=== PATIENT | female | born 1995 | race Caucasian/White ===

== ENCOUNTER 2020-06-09 08:04 | Emergency (ER) | payer MEDICAID, SELFPAY ==
[~2020-06-09] VITALS: Ht 160 cm; Wt 88.5 kg
[2020-06-09 08:04] VITALS: BP 114/72
--- NOTE | 2020-06-09 08:04 | NUR ---
PT BIBA AND PLACED IN COVID TENT TO WAIT FOR MSE.
--- NOTE | 2020-06-09 08:22 | NUR ---
BIBA FROM HOME C/O SOB, BODY ACHES, LOSS OF SMELL X1 DAY HX DENIES RX DENIES
[2020-06-09] MEDS ORDERED: KETOROLAC 60 MG/2 ML VIAL IM ONE (08:50)
[2020-06-09] MEDS ORDERED: ONDANSETRON 4 MG ODT PO ONE (08:50)
--- NOTE | 2020-06-09 09:00 | NUR ---
COVID SWAB COLLECTED.
[2020-06-09 09:10] VITALS: BP 114/72
--- NOTE | 2020-06-09 09:10 | NUR ---
Patient discharged with v/s stable. Written and verbal after care instructions given and explained. Patient alert, oriented and verbalized understanding of instructions. Ambulatory with steady gait. All questions addressed prior to discharge. ID band removed. Patient advised to follow up with PMD. Rx of ZOFRAN & MOTRIN given. Patient educated on indication of medication including possible reaction and side effects. Opportunity to ask questions provided and answered.
== END 2020-06-09 09:10 | disposition home or self-care (01) ==
LOC: MED 08:04
DX: M79.10 Myalgia, unspecified site (principal); R05 Cough; R51.9 Headache, unspecified; Z20.828 Contact with and (suspected) exposure to other viral communicable diseases
CPT/HCPCS: 96372; 99283; J1885; Q0162; U0003

== ENCOUNTER 2022-05-03 20:25 | Emergency (ER) | payer MEDICAID ==
[~2022-05-03] VITALS: Ht 157.5 cm; Wt 104.3 kg
[2022-05-03 20:56] VITALS: BP 119/71
--- NOTE | 2022-05-03 21:02 | NUR ---
TO LOBBY FOLLOWING TRIAGE
--- NOTE | 2022-05-03 21:26 | NUR ---
pt to bed 11
--- NOTE | 2022-05-03 21:31 | NUR ---
Pt coming from home ambulatory with steady gait. Pt c/o left shoulder pain that radiates to her wrist. Pain with activity. No trauma. Pt states she woke up and thats when her shoulder started to hurt. Skin intact. No deformity noted and no swelling. Pt A&Ox4. VSS. NKA. No known medical conditions. Bed in lowest position.
[2022-05-03] MEDS ORDERED: KETOROLAC 60 MG/2 ML VIAL IM ONE (22:55)
--- NOTE | 2022-05-03 23:00 | NUR ---
Dr. Lewis at bedside examining pt.
--- NOTE | 2022-05-03 23:03 | NUR ---
X-Ray at bedside.
--- NOTE | 2022-05-04 01:55 | NUR ---
Dr. Lewis at bedside.
[2022-05-04] MEDS ORDERED: NAPR-54 PO (01:57)
[2022-05-04 02:00] VITALS: BP 128/77
--- NOTE | 2022-05-04 02:00 | NUR ---
Patient discharged with v/s stable. Written and verbal after care instructions given and explained. Patient verbalized understanding. Ambulatory with steady gait. All questions addressed prior to discharge. Advised to follow up with PMD.
== END 2022-05-04 02:00 | disposition home or self-care (01) ==
LOC: MED 20:25
DX: S43.402A Unspecified sprain of left shoulder joint, initial encounter (principal); X58.XXXA Exposure to other specified factors, initial encounter; Y93.89 Activity, other specified; Y92.89 Other specified places as the place of occurrence of the external cause; Y99.8 Other external cause status
CPT/HCPCS: 73030; 96372; 99283; J1885; Q0092